=== PATIENT | male | born 1995 | race Two or more races ===

== ENCOUNTER 2021-05-26 12:06 | Emergency (ER) | payer MEDICAID, OTHER ==
[~2021-05-26] VITALS: Ht 177.8 cm; Wt 104.3 kg
[2021-05-26 12:29] VITALS: BP 163/83
[2021-05-26] MEDS ORDERED: SULF400T11 PO (12:55)
== END 2021-05-26 13:22 | disposition home or self-care (01) ==
LOC: ER 12:06
DX: L02.416 Cutaneous abscess of left lower limb (principal); L90.5 Scar conditions and fibrosis of skin; L08.9 Local infection of the skin and subcutaneous tissue, unspecified